=== PATIENT | male | born 1975 | race Caucasian/White ===

== ENCOUNTER 2017-12-14 23:59 | Emergency (ER) | payer MEDICARE ==
[~2017-12-14] VITALS: Ht 188 cm; Wt 122.3 kg
[2017-12-15 00:50] LABS: HEMATOCRIT 42.6 % (38.0-50.0); HEMOGLOBIN 15.1 G/DL (12.5-16.6); MCH 31.2 PG (29.0-34.0); MCHC 35.4 G/DL (30.0-36.0); PLATELET COUNT 219 K/uL (156-360); RBC DIS.WIDTH-CV 12.3 % (11.8-14.6); RBC DIS.WIDTH-SD 39.3 % (39-53); RED BLOOD COUNT 4.84 M/uL (4.00-5.50); WHITE BLOOD COUNT 13.8 K/uL (4.1-10.2)
[2017-12-15 01:04] LABS: CHLORIDE 107 mEq/L (99-109); SODIUM 141 mEq/L (136-147)
[2017-12-15 01:06] LABS: GLUCOSE 147 mg/dL (70-99)
[2017-12-15 01:10] LABS: CREATININE 1.4 mg/dL (0.6-1.3)
[2017-12-15 01:11] LABS: GFR ESTIMATE (CALCULATED) > 59 mL/min/ (58.99-99999); UREA NITROGEN (BUN) 20 mg/dL (9-23)
[2017-12-15 01:16] LABS: APPEARANCE CLOUDY ((CLEAR)); BILIRUBIN NEGATIVE; BLOOD LARGE; COLOR AMBER ((YELLOW)); GLUCOSE (STRIP) NEGATIVE; KETONES 20; LEUKOCYTES NEGATIVE; NITRITE NEGATIVE; PROTEIN (STRIP) 100; SPECIFIC GRAVITY 1.025 (1.000-1.030); UROBILINOGEN 0.2 MG/DL (0.2-1.0)
[2017-12-15 02:14] LABS: RED BLOOD CELLS TNTC /HPF (0-5); UCUL ADDED? YES
[2017-12-15] MEDS ORDERED: FLOMAX0.4 MG PO (02:32)
[2017-12-15] MEDS ORDERED: ZOFRAN4 MG PO (02:32)
[2017-12-15] MEDS ORDERED: PERCOCET 5/31 TABLET PO (02:32)
[2017-12-15] MEDS ORDERED: ULTRAM50 MG PO (03:38)
[2017-12-15 03:46] VITALS: BP 127/95
[2017-12-16] MEDS ORDERED: NORCO 10/3251 TABLET PO (19:19)
[2017-12-16] MEDS ORDERED: ZOFRAN ODT8 MG PO (19:19)
[2017-12-16] MEDS ORDERED: MOTRIN800 MG PO (19:19)
== END 2017-12-15 03:49 | disposition home or self-care (01) ==
LOC: EME → EDBD 23:59 → EME 12-15 03:49
PROVIDERS: Emergency Medicine
DX: N13.2 Hydronephrosis with renal and ureteral calculous obstruction (principal); R31.9 Hematuria, unspecified; R94.8 Abnormal results of function studies of other organs and systems; K76.0 Fatty (change of) liver, not elsewhere classified; K44.9 Diaphragmatic hernia without obstruction or gangrene
CPT/HCPCS: 74176; 80048; 81003; 85027; 87086; 99281; 99285; J1885; J2405

== ENCOUNTER 2017-12-16 17:30 | Emergency (ER) | payer MEDICARE ==
[~2017-12-16] VITALS: Ht 188 cm; Wt 126.2 kg
[~2017-12-16 17:30] MED LIST: FLOMAX0.4 MG PO; PERCOCET 5/31 TABLET PO; ULTRAM50 MG PO; ZOFRAN4 MG PO
[2017-12-16] MEDS ORDERED: ZOFRAN ODT8 MG PO (19:19)
[2017-12-16] MEDS ORDERED: NORCO 10/3251 TABLET PO (19:19)
[2017-12-16] MEDS ORDERED: MOTRIN800 MG PO (19:19)
[2017-12-16 19:32] VITALS: BP 128/81
== END 2017-12-16 19:34 | disposition home or self-care (01) ==
LOC: EME 17:30
DX: N13.2 Hydronephrosis with renal and ureteral calculous obstruction (principal); R11.2 Nausea with vomiting, unspecified; Z87.891 Personal history of nicotine dependence
CPT/HCPCS: 99281; 99285